=== PATIENT | female | born 1965 | race Hispanic/Latino ===

== ENCOUNTER 2018-12-07 11:45 | Emergency (ER) | payer OTHER ==
[2018-12-07 12:32] VITALS: TEMP 98.2
--- NOTE | 2018-12-07 15:10 | C.PDOC ---
History Of Present Illness 53 year old female, who is otherwise well, presents to the ED for evaluation of abdominal pain, sensation of bloating, and bouts of constipation that have been ongoing for one month. Patient states she was evaluated by Dr. Roy and is scheduled for a colonoscopy next week. She presents to the ED today because she is still experiencing pain. Patient also reports decreased PO intake and some weight loss. She denies fever, chills, nausea, and vomiting. Patient states she does not take any chronic pain medication. Time Seen by Provider: 12/07/18 12:49 Chief Complaint (Nursing): Abdominal Pain History Per: Patient History/Exam Limitations: no limitations Onset/Duration Of Symptoms: Other (one month ) Current Symptoms Are (Timing): Still Present Location Of Pain/Discomfort: Diffuse Quality Of Discomfort: "Pain" Past Medical History Reviewed: Historical Data, Nursing Documentation, Vital Signs Vital Signs: Last Vital Signs Temp 98.2 F 12/07/18 12:19 Pulse 78 12/07/18 12:19 Resp 18 12/07/18 12:19 BP 171/94 H 12/07/18 12:19 Pulse Ox 98 12/07/18 12:19 - Medical History PMH: HTN, Hypothyroidism Surgical History: No Surg Hx - [facility] Procedures C.A.T. SCAN OF ABDOMEN (12/22/11) PERCUTAN NEEDLE BX OF LIVER (12/22/11) Family History: States: Unknown Family Hx - Social History Hx Alcohol Use: No Hx Substance Use: No - Immunization History Hx Tetanus Toxoid Vaccination: No Hx Influenza Vaccination: No Hx Pneumococcal Vaccination: No Review Of Systems Constitutional: Positive for: Weight loss, Other (decreased PO intake ). Negative for: Fever, Chills Gastrointestinal: Positive for: Abdominal Pain, Constipation. Negative for: Nausea, Vomiting Physical Exam - Physical Exam Appears: Non-toxic, No Acute Distress Skin: Normal Color, Warm, Dry Head: Atraumatic, Normacephalic Eye(s): bilateral: Normal Inspection Oral Mucosa: Moist Neck: Supple Chest: Symmetrical, No Deformity, No Tenderness Cardiovascular: Rhythm Regular, No Murmur Respiratory: Normal Breath Sounds, No Rales, No Rhonchi, No Wheezing Gastrointestinal/Abdominal: Soft, Tenderness (mild, diffuse discomfort with deep palpation ), No Mass, No Guarding, No Rebound Back: No CVA Tenderness Extremity: Normal ROM, Capillary Refill (less than 2 seconds ) Neurological/Psych: Oriented x3, Normal Speech, Normal Cognition ED Course And Treatment O2 Sat by Pulse Oximetry: 98 (on RA) Pulse Ox Interpretation: Normal Medical Decision Making Medical Decision Making: Progress: Abdomen flat plate XR ordered and reviewed. Disposition Counseled Patient/Family Regarding: Studies Performed, Diagnosis, Need For Followup, Rx Given - Disposition Referrals: Junito Roy MD [Staff Provider] - Disposition: HOME/ ROUTINE Disposition Time: 15:28 Condition: STABLE Prescriptions: Magnesium Citrate [Citrate of Magnesia] 296 ml PO DAILY #3 bot Polyethylene Glycol 3350 [Miralax] 1 packet PO DAILY #30 powd.pack Wheat Dextrin [Benefiber] 1 each PO DAILY #30 powd.pack Instructions: Constipation, Adult (DC) Forms: [facility] (Ukrainian), General Discharge Instructions - POA Present On Arrival: None - Clinical Impression Clinical Impression: Abdominal pain, Constipation - Scribe Statement The provider has reviewed the documentation as recorded by the Scribe (Tiffanie Lopez) Provider Attestation: All medical record entries made by the Scribe were at my direction and personally dictated by me. I have reviewed the chart and agree that the record accurately reflects my personal performance of the history, physical exam, medical decision making, and the department course for this patient. I have also personally directed, reviewed, and agree with the discharge instructions and disposition.
--- NOTE | 2018-12-07 15:46 | RAD ---
Date of service: 12/07/2018 HISTORY: constipation COMPARISON: None available. TECHNIQUE: 1 view obtained. FINDINGS: BOWEL: Moderate stool retention present. 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 OTHER FINDINGS: Probable moderately distended bladder. IMPRESSION: Stool retention compatible with constipation. No bowel obstruction appreciated. Other findings as above.
[2018-12-07 15:53] VITALS: BP 147/90; PULSE 84; RESP 16; O2SAT 100
== END 2018-12-07 15:52 | disposition home or self-care (01) ==
LOC: C.ER 11:45
DX: K59.00 Constipation, unspecified (principal); R10.9 Unspecified abdominal pain